=== PATIENT | male | born 1975 | race Caucasian/White ===

== ENCOUNTER → 2017-04-19 | Outpatient (REF) | payer OTHER | LOC: M SFHCLERA 19:37 | PROVIDERS: ATTEND Nurse Practitioner Family | DX: J02.9 Acute pharyngitis, unspecified (principal) ==

== ENCOUNTER 2018-03-22 00:23 | Emergency (ER) | payer OTHER ==
[2018-03-22] MEDS: NORCO, ANEXSIA 5/325MG TABLET (HYDROcodone/ACETAMINOPHEN) PO (03:30)
[2018-03-22] MEDS: NORCO 5/325MG TABLET (BULK FOR ED) PO (06:45)
== END 2018-03-22 06:59 | disposition home or self-care (01) ==
LOC: M ED 00:23
DX: S02.40FA Zygomatic fracture, left side, initial encounter for closed fracture (principal); S01.111A Laceration without foreign body of right eyelid and periocular area, initial encounter; X58.XXXA Exposure to other specified factors, initial encounter; Y92.410 Unspecified street and highway as the place of occurrence of the external cause; Y93.9 Activity, unspecified; Y99.9 Unspecified external cause status
CPT/HCPCS: 70486